=== PATIENT | female | born 1950 | race Caucasian/White ===

== ENCOUNTER 2023-04-14 13:15 | Outpatient (CLI) | payer OTHER, MEDICARE | END 2023-04-14 13:16 | disposition critical access hospital (66) | LOC: EMS 13:15 | DX: S80.212A Abrasion, left knee, initial encounter (principal); S80.211A Abrasion, right knee, initial encounter; V59.59XA Passenger in pick-up truck or van injured in collision with other motor vehicles in traffic accident, initial encounter; Y93.89 Activity, other specified; R07.89 Other chest pain | CPT/HCPCS: A0425; A0429 ==

== ENCOUNTER 2023-04-14 13:45 | Emergency (ER) | payer OTHER, MEDICARE ==
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
[2023-04-14 15:28] VITALS: BP 165/81; O2SAT 97
== END 2023-04-14 15:19 | disposition home or self-care (01) ==
LOC: ED 13:45
DX: S20.212A Contusion of left front wall of thorax, initial encounter (principal); V43.62XA Car passenger injured in collision with other type car in traffic accident, initial encounter; Y92.410 Unspecified street and highway as the place of occurrence of the external cause
CPT/HCPCS: 99283

== ENCOUNTER 2023-04-28 10:52 | Outpatient (CLI) | payer OTHER ==
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
== END 2023-04-28 10:53 | disposition home or self-care (01) ==
LOC: DI 10:52
PROVIDERS: ATTEND Registered Nurse
DX: S30.1XXA Contusion of abdominal wall, initial encounter (principal); S20.212A Contusion of left front wall of thorax, initial encounter; R07.89 Other chest pain